=== PATIENT | male | born 1970 | race Caucasian/White ===

== ENCOUNTER 2019-01-04 11:51 | Emergency (ER) | payer BC ==
--- OUTSIDE RECORDS SUMMARY | 2019-01-04 12:02 | XMS REPORT | Continuity of Care Document ---
:1970 External Reference #:[id number] Author Name Kashmir Arroyo MD Address [address] [place] [address] Care Team Providers Name Role Phone Abdiel Barton MD Care Team Information Medical Device Unavailable Abdiel Barton MD Primary Care Physician Unavailable Payers Type Date Identification Numbers Payment Provider Subscriber Policy Number: [id number] Darryl Mcguire PayID: [id number] [address] [address] [place] [address] Effective: 2009 Policy Number: [id number] Darryl Mcguire Expires: 2018 PayID: [id number] [address] [address] [place] [address] Advance Directives Description No Information Available Problems Date Description Provider Status Onset: 11/05/2018 Mixed hyperlipidemia Kashmir Arroyo MD Active Onset: 12/03/2018 Simple chronic bronchitis Joslyn Perez PA Active Family History Date Family Member(s) Problem(s) Comments Father Diabetes Father Hypertension Father Chronic Obstructive Pulmonary Disease (COPD) Mother High Cholesterol Mother Hypertension Social History Type Date Description Comments Sex Unknown Marital Status Lives With Spouse Home Environment Lives With mother,children,spous e Diet Patient follows no dietary restrictions 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 Tobacco Use Start: Unknown Never Smoked Cigarettes ETOH Use Consumes 3 beers per day Tobacco Use Start: Unknown Patient denies history of smoking Recreational Drug Use Never Used Drugs Smoking Status Reviewed: 12/03/18 Patient denies history of smoking Exercise Type/Frequency Exercises regularly Allergies, Adverse Reactions, Alerts Date Description Reaction Status Severity Comments 11/11/2018 Venlafaxine Active 06/29/2010 NKDA Inactive Medications Medication Date Status Form Strength Qnty SIG Indications Ordering Provider Ventolin HFA Active Aerosol 108(90Base 18gm inhale 2 J41.0 eti , 2019 ) mcg/Act puffs by MD Kashmir mouth into lungs every 4 to 6 hours as needed, please instruct on use Ranitidine HCL / Active Capsules 150mg 1 by mouth Unknown 0000 every day Sulfasalazine / Active Tablets 500mg 1 by mouth Unknown 0000 three times a day Esomeprazole / Active Capsules 40mg 1 tab Unknown Magnesium 0000 DR every day every morning Losartan / Active Tablets 50mg 1 by mouth Unknown Potassium 0000 every day Proctocream-HC / Hx Cream 2.5% Unknown 0000 - 2009 Tessalon / Hx Capsules 200mg Unknown 0000 Naproxen / Hx Tablets 500mg 1 po bid Unknown 0000 - 2017 Losartan 0000/ Hx Tablets 25mg 1 by mouth Unknown Potassium 0000 every day Immunizations Description No Information Available Vital Signs Date Vital Result Comment 12/03/2018 3:15pm BP Systolic Sitting Left Arm 126 mmHg BP Diastolic Sitting Left Arm 84 mmHg Heart Rate 70 /min Respiratory Rate 18 /min Height 67 inches 5'7" Weight 161.00 lb BMI (Body Mass Index) 25.2 kg/m2 BSA (Body Surface Area) 1.84 m2 [place] body weight in kilograms 67 kg O2 % BldC Oximetry 95 % Ora 11/11/2018 3:03pm BP Systolic Sitting Left Arm 132 mmHg BP Diastolic Sitting Left Arm 85 mmHg Heart Rate 58 /min Respiratory Rate 18 /min Height 67 inches 5'7" Weight 165.00 lb BMI (Body Mass Index) 25.8 kg/m2 BSA (Body Surface Area) 1.86 m2 [place] body weight in kilograms 67 kg O2 % BldC Oximetry 97 % 07/24/2010 10:20am Heart Rate 54 /min Respiratory Rate 16 /min Height 67 inches 5'7" Weight 149.00 lb BMI (Body Mass Index) 23.3 kg/m2 Results Test Date Facility Test Result H/L Range Note Laboratory test 08/08/2018 N2N/CCD Import Cholesterol 234 mg/dL High finding HDL Cholesterol 49 mg/dL LDL-Cholesterol 158 mg/dL Triglycerides 133 mg/dL Basic Metabolic Panel 08/08/2018 N2N/CCD Import Anion Gap 9 mEq/L 8-16 BUN 17 mg/dL 7-18 BUN/Creat 14.1 ratio Calcium 8.8 mg/dL 8.5-10.1 Carbon Dioxide 27 mmol/L 21-32 Chloride 106 mmol/L 98-107 Creatinine 1.2 mg/dL 0.6-1.3 Glom Filtration Rate, Estimate >60 mL/min Glucose 91 mg/dL 74-106 If >60 mL/min Potassium 4.3 mmol/L 3.5-5.1 Sodium 142 mmol/L 136-145 Laboratory test finding 01/29/2018 N2N/CCD Import Chol/ HDL Ratio 4.1 ratio 4-6.7 Cholesterol 238 mg/dL High 50-199 HDL 57 mg/dL 29-71 LDL (Calc) 166 mg/dL High 20-99 Magnesium 2.1 mg/dL 1.5-2.7 Triglycerides 74 mg/dL 30-200 VLDL 15 mg/dL 2-29 Vitamin B12 402 pg/mL 180-914 Basic (BMP) 01/29/2018 N2N/CCD Import Apple Egfr >60 Anion Gap 8 mmol/L 5-15 BUN 19 mg/dL 6-26 Calcium 9.3 mg/dL 8.5-10.2 Carbon Dioxide 30 mmol/L 24-34 Chloride# 105 mmol/L 97-110 Creatinine 1.0 mg/dL 0.5-1.4 Glucose 74 mg/dL 70-105 Non Apple Egfr >60 Potassium 3.9 mmol/L 3.5-5.2 Sodium 143 mmol/L 135-146 Hepatic Panel (LFT) 01/29/2018 N2N/CCD Import Albumin 4.9 g/dL 3.6-4.9 Alkaline Phosphatase 52 U/L 24-140 Alt 32 U/L 3-42 Ast 26 U/L 8-42 Direct Bilirubin 0.1 mg/dL 0-0.4 Total Bilirubin 0.7 mg/dL 0.1-1.3 Total Protein 6.4 g/dL 6-8 Procedures Date Code Description Status 11/14/2018 49034 Bronchospasm Provocation Evaluation Multi Spirometric Completed Determinati 11/14/2018 83967 Spirometry Completed Encounters Type Date Location Provider Dx Diagnosis Office Visit 12/03/2018 Pulmonology Joslyn Perez J41.0 Simple chronic 3:20p PA bronchitis Office Visit 11/11/2018 Pulmonology Kashmir Arroyo MD J41.0 Simple chronic 3:00p bronchitis Office Visit 07/24/2010 Surgical Office Noel Jain MD 789.09 Pain Abdominal 10:00a Other Spec Site Plan of Treatment Future Appointment(s):06/02/2019 4:00 pm - Kashmir Arroyo MD at [facility]/09 /2019 - Joslyn Perez PAJ41.0 Simple chronic bronchitisNew Medication: Ventolin HFA 108(90 Base) mcg/Act - inhale 2 puffs by mouth into lungs every 4 to 6 hours as needed,please instruct on useComments:Avoid pollution, fumes and second hand smoke.Drink at least 10 glasses fluid daily We will trial ashort acting medication to dilate your airways. Use as needed for cough and monitor effect. If after2-4 weeks of use you do not notice any difference please call. We can discuss changing to a longer acting medication, checking labs for eosinophils or possibly broncho provocation test to rule out asthma. Stay hydrated to help reduce the impact of the medication. It may make you feel like your heart is racing and you may feel shaky.Follow up:6 months
[2019-01-04 13:29] VITALS: BP 147/84
--- NOTE | 2019-01-04 13:52 | UC ---
Throat Pain/Nasal Nash HPI - HPI Summary HPI Summary: 48-year-old male comes in with a chief complaint of sore throat. It has been going on About 3 days. It hurts worse when he swallows. He has chest congestion also is bringing up some sputum. NO Wheezing no shortness breath. [id number]-[id number] medicines help with symptoms some. - History of Current Complaint Chief Complaint: UCGeneralIllness Stated Complaint: THROAT,FEVER Time Seen by Provider: 01/04/19 13:43 Pain Intensity: 7 - Allergies/Home Medications Allergies/Adverse Reactions: Allergies Allergy/AdvReac Type Severity Reaction Status Date / Time No Known Allergies Allergy Verified 01/04/19 13:17 Home Medications: Home Medications Diphenhydra/Phenyleph/Acetamin [Theraflu Severe Cold & Co 25-10-650 mg] 1 pow PO DAILY PRN 01/04/19 [History Confirmed 01/04/19] Esomeprazole(NF) [NexIUM(NF)] 40 mg PO DAILY 01/04/19 [History Confirmed ] Losartan TAB* [Cozaar TAB*] 25 mg PO DAILY 01/04/19 [History Confirmed 01/04/19] raNITIdine HCl [Ranitidine HCl] 150 mg PO BEDTIME 01/04/19 [History Confirmed ] sulfaSALAzine TAB* [Azulfidine TAB*] 1,000 mg PO BID 01/04/19 [History Confirmed 01/04/19] PMH/Surg Hx/FS Hx/Imm Hx Previously Healthy: Yes - Surgical History Surgical History: Yes Surgery Procedure, Year, and Place: NOSE- RECONTRUCTION. R WRIST - FX- SCREW - Family History Known Family History: Positive: Non-Contributory - Social History Alcohol Use: Weekly Substance Use Type: None Smoking Status (MU): Never Smoked Tobacco Review of Systems All Other Systems Reviewed And Are Negative: Yes Constitutional: Positive: Fever, Chills Skin: Positive: Negative Eyes: Positive: Negative ENT: Positive: Sore Throat, Nasal Discharge, Sinus Congestion Respiratory: Positive: Negative Cardiovascular: Positive: Negative Gastrointestinal: Positive: Negative Motor: Positive: Negative Neurovascular: Positive: Negative Musculoskeletal: Positive: Negative Neurological: Positive: Negative Psychological: Positive: Negative Is Patient Immunocompromised?: No Physical Exam Triage Information Reviewed: Yes Appearance: No Pain Distress, Well-Nourished, Ill-Appearing - MILD Vital Signs: Initial Vital Signs Temp 98.4 F 01/04/19 13:21 Pulse 68 01/04/19 13:21 Resp 16 01/04/19 13:21 BP 147/84 01/04/19 13:21 Pulse Ox 99 01/04/19 13:21 Vital Signs Reviewed: Yes Eye Exam: Normal Eyes: Positive: Conjunctiva Clear ENT: Positive: Pharyngeal erythema, Nasal congestion, Nasal drainage, TMs normal Neck exam: Normal Neck: Positive: Supple Respiratory: Positive: Lungs clear, Normal breath sounds, No respiratory distress Cardiovascular Exam: Normal Cardiovascular: Positive: RRR Musculoskeletal Exam: Normal Musculoskeletal: Positive: Strength Intact, ROM Intact Neurological Exam: Normal Neurological: Positive: Alert, Muscle Tone Normal Psychological Exam: Normal Psychological: Positive: Age Appropriate Behavior Skin Exam: Normal Throat Pain/Nasal Course/Dx - Course Course Of Treatment: DISCUSSED VIRAL VERSES BACTERIAL INFECTION AND THE ROLE OF ANTIBIOTICS. THE PATIENT WISHES TO BE ON ANTIBIOTIC AT THIS TIME. - Differential Dx/Diagnosis Provider Diagnosis: Pharyngitis Discharge - Sign-Out/Discharge Documenting (check all that apply): Patient Departure All imaging exams completed and their final reports reviewed: No Studies - Discharge Plan Condition: Stable Disposition: HOME Prescriptions: Amoxicillin PO (*) [Amoxicillin 875 MG (*)] 875 mg PO BID #20 tab Patient Education Materials: Pharyngitis (ED) Referrals: Abdiel Barton MD [Primary Care Provider] - Additional Instructions: FOLLOW UP WITH YOUR DOCTOR IF NOT COMPLETELY IMPROVED. GET RECHECKED FOR ANY WORSENING OF YOUR CONDITION OR QUESTIONS OR CONCERNS. - Billing Disposition and Condition Condition: STABLE Disposition: Home
== END 2019-01-04 14:00 | disposition home or self-care (01) ==
LOC: UCCORT 11:51
DX: J02.9 Acute pharyngitis, unspecified (principal); R09.81 Nasal congestion; R09.89 Other specified symptoms and signs involving the circulatory and respiratory systems
CPT/HCPCS: 99212; G0463

== ENCOUNTER 2019-02-09 06:32 | Day surgery (SDC) | payer BC ==
--- NOTE | 2019-01-22 09:48 | HP ---
PREOPERATIVE HISTORY AND PHYSICAL: DATE OF SURGERY: 02/09/19 - [facility] DATE OF OFFICE VISIT: 01/15/19 ATTENDING SURGEON: Dr. Asuncion Hidalgo * (DICTATED BY MALIA DURBIN) PROCEDURE: Right shoulder arthroscopic decompression, debridement, and subpectoral biceps tenodesis, possible rotator cuff repair. CHIEF COMPLAINT: Right shoulder. HISTORY OF PRESENT ILLNESS: Rustam is a 48-year-old male who presents to the clinic for right shoulder pain due to a partial thickness tearing of the supraspinatus tendon, biceps tendinitis. He has failed conservative measures and therefore agreed to undergo right shoulder arthroscopic decompression, debridement, subpectoral biceps tenodesis, and possible rotator cuff repair with Dr. Hidalgo on 02/09/19. PAST MEDICAL HISTORY: Rheumatoid arthritis, GERD, headache, hyperlipidemia, hypertension. PAST SURGICAL HISTORY: Right hand surgery, EGD, right scaphoid surgery, orbital surgery, and lens implant. The patient denies prior complications with anesthesia. MEDICATIONS: 1. Esomeprazole 40 mg 1 daily. 2. Ranitidine 150 mg 1 by mouth daily. 3. Sulfasalazine 500 mg 2 by mouth twice a day. 4. Losartan 25 mg 1 by mouth daily. FAMILY HISTORY: Positive for alcoholism, diabetes, heart disease, high cholesterol, hypertension, obesity, and osteoporosis. SOCIAL HISTORY: He is . He lives with his . 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 He denies tobacco use. He reports occasional alcohol consumption. He denies illegal drug use. He is right hand dominant. REVIEW OF SYSTEMS: A 14-point review of systems was reviewed with the patient. Positive for current complaint, otherwise negative. Denies fever, chills, chest pain, shortness of breath, history of bleeding disorder, history of DVT or PE. PHYSICAL EXAMINATION GENERAL: A 48-year-old well-developed, well-nourished male, in no acute distress. VITAL SIGNS: Height 67, weight 162, pulse 78, blood pressure 128/80, respiratory rate 18, BMI 25.4. HEENT: Normocephalic, atraumatic. PERRLA. Throat clear. NECK: Supple. PULMONARY: Lungs are clear to auscultation bilaterally. No wheezing, rhonchi, or rales. CARDIO: Regular rate and rhythm. S1, S2. No murmurs, gallops, or rubs. No edema. ABDOMEN: Positive bowel sounds. Soft, nontender. NEURO: Alert and oriented x3. Cranial nerves grossly intact. MUSCULOSKELETAL: Right upper extremity: Skin is intact. No warmth or erythema. Tenderness over the biceps tendon, nontender over the AC joint. Forward flexion and abduction 175, external rotation 75, internal rotation T10. +5/5 strength to rotator cuff testing with pain. Positive impingement, Speed , Castillo-Mike, Amelia. +2 radial pulse. Sensation intact to light touch distally. DIAGNOSTIC STUDIES: Multi-view x-rays and MRI of the right shoulder revealed partial-thickness tear of the supraspinous tendon with a SLAP tear, fluid around the biceps, and partial interstitial tearing of the distal subscapularis tendon. IMPRESSION: Right shoulder rotator cuff tear and biceps tendinitis. PLAN: The patient is scheduled to undergo a right shoulder arthroscopic decompression, debridement, subpectoral biceps tenodesis, and possible rotator cuff repair with Dr. Hidalgo on 02/09/19. He will follow up 10 to 14 days postop and Percocet will be used for postop pain management. MALIA DURBIN [id number]/[facility] #: [id number] MTDD
[~2019-02-09 06:32] MED LIST: Buffered Lidocaine 1% SYRIN* 1 ML/SYRINGE INTRADERM ONE; Lactated Ringers 1000 ML Bag* 1,000 ML IV SCH
[2019-02-09] MEDS ORDERED: ceFAZolin 2 GM PREMIX in ORs 2 GM/50 ML BAG IVPB ONE (06:42)
[2019-02-09] MEDS ORDERED: fentaNYL* 50 MCG/ML 2 ML VIAL (100 MCG VIAL) ONE (07:29)
[2019-02-09] MEDS ORDERED: Midazolam* 1 MG/ML 2 ML VIAL (2 MG) ONE (07:29)
[2019-02-09] MEDS ORDERED: Bupivacaine 0.5% W/EPI SDV* 30 ML VIAL ONE (07:30)
[2019-02-09] MEDS ORDERED: Propofol* 10 MG/ML 20 ML BTL ONE ×2 (07:58→10:07)
[2019-02-09] MEDS ORDERED: Ondansetron INJ* 2 MG/ML VIAL ONE ×2 (07:58→10:07)
[2019-02-09] MEDS ORDERED: Dexamethasone IV* 4 MG/ML 1 ML (4 MG) ONE (07:58)
[2019-02-09] MEDS ORDERED: Lidocaine 2% PF * 5 ML VIAL ONE ×2 (07:58→10:07)
[2019-02-09] MEDS ORDERED: Naloxone* 0.4 MG/ML 1 ML VIAL IV PRN (08:42)
[2019-02-09 10:03] VITALS: BP 157/87
[2019-02-09] MEDS ORDERED: Succinylcholine* 20 MG/ML 10 ML VIAL ONE (10:07)
--- NOTE | 2019-02-09 12:52 | OP ---
CC: PCP, Abdiel Mayo MD * DATE OF OPERATION: 02/09/19 - [facility] DATE OF : 66 SURGEON: Asuncion Hidalgo MD CLUTCH MECHANIC: MALIA Anne. Parts Chaser was needed for the entirety of the case to help with positioning and retraction, and was utilized throughout all portions of the case. ANESTHESIOLOGIST: Dr. Valdez. ANESTHESIA: General interscalene block. PRE-OP DIAGNOSIS: Right shoulder high-grade partial-thickness tear of the rotator cuff with the superior labral tear. POST-OP DIAGNOSIS: Right shoulder high-grade partial-thickness tear of the rotator cuff with the superior labral tear. OPERATIVE PROCEDURES: Right shoulder arthroscopy with: 1. Extensive glenohumeral debridement including debridement of anteroposterior superior labrum and chondroplasty. 2. Subacromial decompression with acromioplasty. 3. Rotator cuff repair using Regeneten patch. 4. Open subpectoral biceps tenodesis. COMPLICATIONS: None. ESTIMATED BLOOD LOSS: Minimal. IMPLANTS USED: One Regeneten patch, size medium; and one Q-Fix 2.8 mm. INDICATIONS: Rustam Mcguire is a 48-year-old male who has persistent shoulder pain. He failed conservative management. He elected to proceed with surgical treatment. Risks and benefits were discussed at length including but not limited to bleeding; infection; damage to nerves, vessels, surrounding structures; wound nonhealing; persistent pain; need for further surgery; scarring; stiffness; incomplete relief of symptoms; risks of anesthesia. DESCRIPTION OF PROCEDURE: The patient was greeted in the preoperative area by the attending surgeon. The correct extremity was marked and consent was confirmed. The patient was brought back to the operative suite and placed in supine position on the operative table and underwent interscalene nerve block by the anesthesiologist, after which he was brought back to the operating suite where he was placed in supine position on the operating table. He then underwent general anesthesia and endotracheal intubation, after which he was placed in the left lateral decubitus position with all bony prominences padded. He was secured with a pegboard. The right arm was draped in sterile with 10 pounds of traction. The right shoulder was then prepped and draped in the usual sterile fashion beginning with chlorhexidine soap, scrub, and alcohol wipe and a final prep with ChloraPrep. After appropriate surgical pause indicating side, site, procedure, and administration of antibiotics, the standard postero-lateral portal was made sharply with an 11 blade. Scope was introduced into the joint. Joint was examined. There were grade 0 changes to the humerus and grade 1 as far as grade 2 changes of the glenoid. The inferior recess was intact. The anteroposterior superior labrum had unstable fraying. The superior labrum was torn. In the biceps, also had tearing along the substance of the tendon with the concomitant lesion on the head causing some chondrosis. The subscap was intact. There was abundant synovitic tissue. The anterior portal was made in an outside-in fashion. Shaver was used to debride back the anteroposterior superior labrum due to small chondroplasty as well as to debride the soft tissue that was around the subscap. Subscap was found to be intact. The undersurface of supraspinatus had high-grade proximal segment of the tear of the rotator cuff. The unstable flap was debrided back. The biceps was then tenotomized for later tenodesis. After this was completed, fluid and debris was removed from this portion of the case. Attention was directed to the subacromial space. With the scope in the subacromial space, the lateral portal was made in an outside- in fashion, showed there was abundant synovitic bursa present. This was debrided back using the theresa. Biters were also used to remove the thick bands. The electrocautery device was then used to maintain hemostasis and skeletonized the undersurface of the acromion, after which an anterolateral spur was revealed. The CA ligament was gently released. The 4-0 oval bur was then used to do an acromioplasty. Once this was completed, attention was directed to the cuff. Again, the significant bursa was removed. The cuff was probed and found to have no obvious tears. The decision was made to do a Regeneten patch as he had high-grade partial-thickness tear. The size medium Regeneten patch was brought to the field and then placed under arthroscopic visualization and was secured medially with the tendon jhoana. This was then secured laterally with bone jhoana. The graft was found to be appropriately secured and shoulder was taken through range of motion and found to be intact. Final images were obtained. The wounds were copiously irrigated and attention was directed to the biceps. The bed air-planed to the right side and the anterior aspect of the shoulder was prepped again using the ChloraPrep. The soft tissue was carefully dissected to expose the pec fascia. The remainder of the dissection was done bluntly. The biceps was then palpated and brought through the wound. The groove was then prepared in usual fashion with electrocautery device, the rasp and the osteotome to allow for bony bleeding bed. The Q-Fix guide was then placed to drill unicortically. The Q-Fix was deployed with excellent purchase. The incision was then passed through the biceps in Mitch-Agapito type configuration. The excess stump was excised and then biceps was shuttled back to the wound and tied down. The wounds were copiously irrigated with sterile saline. The portals were closed with 3-0 nylon and the skin in layers with 3-0 Monocryl. Sterile dressings were applied. Cryo/Cuff and UltraSling were applied. He was awoken from anesthesia and transferred to the PACU in stable condition. POSTOPERATIVE PLAN: He will be nonweightbearing. He will be in the sling for 4 weeks. He will be discharged on pain medication. We will try to have him start therapy this week. DVT prophylaxis was considered, but deferred due to no previous personal or family history. I will see the patient back in 10 to 14 days. [id number] #: [id number] MTDD
== END 2019-02-09 10:20 | disposition home or self-care (01) ==
LOC: OREAST 06:32
PROVIDERS: ATTEND Orthopaedic Surgery
DX: S43.421A Sprain of right rotator cuff capsule, initial encounter (principal); S43.491A Other sprain of right shoulder joint, initial encounter; X58.XXXA Exposure to other specified factors, initial encounter; Y92.9 Unspecified place or not applicable; G89.18 Other acute postprocedural pain; I10 Essential (primary) hypertension; K21.9 Gastro-esophageal reflux disease without esophagitis; M06.9 Rheumatoid arthritis, unspecified
CPT/HCPCS: 88304; C1713; C1776; J0330; J0690; J1100; J2250; J2405; J2704; J3010